=== PATIENT | female | born 1955 | race American Indian/Alaskan Native ===

== ENCOUNTER 2019-08-13 01:13 | Emergency (ER) | payer OTHER ==
--- NOTE | 2019-08-13 01:28 | Emergency Department Report ---
- General Chief Complaint: Dyspnea/Respdistress Stated Complaint: FEVER/COUGH Time Seen by Provider: 08/13/19 01:25 Source: patient, EMS Mode of arrival: Stretcher Limitations: No Limitations - History of Present Illness Initial Comments: This is a 63-year-old female with history of diabetes mellitus, hypertension who presents with subjective fever and cough since Monday for the past 1 and half days. 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 Unknown exposure to coronavirus. No recent travel. Harsh dry cough. She feels rattling in her chest. Highest temperature 99.8 F. 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 denies: malaise Respiratory: cough. denies: shortness of breath Cardiovascular: denies: chest pain Gastrointestinal: denies: abdominal pain, nausea, vomiting ED Past Medical Hx - Past Medical History Previous Medical History?: Yes Hx Hypertension: Yes Hx Diabetes: Yes - Surgical History Past Surgical History?: No - Social History Smoking Status: Never Smoker ED Physical Exam - General Limitations: No Limitations General appearance: alert, in no apparent distress - Head Head exam: Present: atraumatic, normocephalic - Eye Eye exam: Present: normal appearance - ENT ENT exam: Present: mucous membranes moist - Neck Neck exam: Present: normal inspection, full ROM - Respiratory Respiratory exam: Present: normal lung sounds bilaterally. Absent: respiratory distress, wheezes, rales, rhonchi - Cardiovascular Cardiovascular Exam: Present: regular rate, normal rhythm, normal heart sounds. Absent: systolic murmur, diastolic murmur, rubs, gallop - GI/Abdominal GI/Abdominal exam: Present: soft, normal bowel sounds. Absent: distended, tenderness, guarding, rebound - Extremities Exam Extremities exam: Present: normal inspection - Neurological Exam Neurological exam: Present: alert, oriented X3 - Psychiatric Psychiatric exam: Present: normal affect, normal mood - Skin Skin exam: Present: warm, dry, intact, normal color. Absent: rash ED Course Vital Signs 08/13/19 08/13/19 01:41 01:53 Temperature 99.0 F Pulse Rate 84 Respiratory 21 Rate Blood Pressure 115/69 [Right] O2 Sat by Pulse 92 Oximetry ED Medical Decision Making - Lab Data Result diagrams: 08/13/19 02:05 08/13/19 02:05 - Radiology Data Radiology results: report reviewed Chest radiograph: No acute findings according to radiology report - Medical Decision Making 63-year-old female who presents for COVID 19 infection testing with history of fever and dry cough. Unfortunately this testing is not readily available. I strongly encouraged her to seek out outpatient testing by her PCP private lab in order to return to work. Otherwise she will require 14 days of isolation away from work. Discharged home CBC chemistry within normal limits with absolute lymphocyte count within normal limits. I gave extensive instructions regarding patient's risk for coronavirus covid 19 infection Critical care attestation.: If time is entered above; I have spent that time in minutes in the direct care of this critically ill patient, excluding procedure time. 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 You will have to either self isolate for 14 days. Else you can request testing at a private lab to be ordered by your primary care physician. Please talk to your apartment community assistant manager for protocol in this setting. You may be able to work if you wear a mask throughout your shift. Practices very according to healthcare settings. Referrals: PRIMARY CARE, [Primary Care Provider] - 3-5 Days
[2019-08-13 01:49] VITALS: BP 115/69
--- NOTE | 2019-08-13 02:18 | XRay Report ---
CHEST 1 VIEW INDICATION / CLINICAL INFORMATION: Cough. COMPARISON: None available. FINDINGS: SUPPORT DEVICES: None. HEART / MEDIASTINUM: No significant abnormality. LUNGS / PLEURA: No significant pulmonary or pleural abnormality. No pneumothorax. ADDITIONAL FINDINGS: No significant additional findings. IMPRESSION: No acute pulmonary or pleural abnormality Signer Name: Jean-Paul Gomez MD FACR Signed: 08/13/2019 2:14 AM Workstation Name: [id number]
[2019-08-13 02:30] LABS: Basophils % (Auto) 0.2 % (0.0-1.8); Eosinophils % (Auto) 0.1 % (0.0-4.3); Hematocrit 34.8 % (30.3-42.9); Hemoglobin 11.2 gm/dl (10.1-14.3); Lymphocytes # (Auto) 1.2 K/mm3 (1.2-5.4); Lymphocytes % (Auto) 25.9 % (13.4-35.0); Mean Corpuscular HGB Conc 32 % (30-34); Mean Corpuscular Volume 82 fl (79-97); Monocytes # (Auto) 0.4 K/mm3 (0.0-0.8); Monocytes % (Auto) 8.8 % (0.0-7.3); Platelet Count 157 K/mm3 (140-440); Red Blood Count 4.25 M/mm3 (3.65-5.03); Red Cell Distribution Width 14.4 % (13.2-15.2)
[2019-08-13 02:39] LABS: BUN/Creatinine Ratio 21; Blood Urea Nitrogen 21 mg/dL (7-17); Calcium 9.7 mg/dL (8.4-10.2); Hemolysis Index 14
== END 2019-08-13 03:31 | disposition home or self-care (01) ==
LOC: ED 01:13
DX: Z20.828 Contact with and (suspected) exposure to other viral communicable diseases (principal); I10 Essential (primary) hypertension; E11.9 Type 2 diabetes mellitus without complications
CPT/HCPCS: 36415; 71045; 80048; 85025